=== PATIENT | male | born 1990 | race African-American/Black ===

== ENCOUNTER 2018-08-27 21:16 | Emergency (ER) | payer MEDICAID ==
[~2018-08-27] VITALS: Ht 182.9 cm; Wt 83.9 kg
--- NOTE | 2018-08-27 21:40 | NUR ---
ED Nurse Note: Pt walked in and c/o lower back pain after he fall today. Pt is AO x 4times, VSS, on room air no distress. GUERA seen Pt at bedside.
[2018-08-27] MEDS ORDERED: NKM (21:48)
[2018-08-27] MEDS ORDERED: Norco 5mg/325mg tab ORAL ONE (22:00)
--- NOTE | 2018-08-27 22:06 | NUR ---
ED Nurse Note: Pt went to CT scan.
[2018-08-27 22:07] VITALS: BP 132/78
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
[2018-08-27] MEDS ORDERED: HYDROCODON-ACE1 EA15 ORAL (22:35)
[2018-08-27] MEDS ORDERED: IBUPROFEN600 MG ORAL (22:35)
[2018-08-27 22:42] VITALS: BP 128/72
--- NOTE | 2018-08-27 22:42 | NUR ---
ED Nurse Note: Pt cleared DC by ERMAr. Pt is AO x 4times, VSS, on room air no distress. ID bend removed. Belongings given to Pt. DC and meds instructions given to Pt, Pt understood well. Pt walked out unit with steady gait.
[2018-08-27 22:43] VITALS: BP 128/72
--- NOTE | 2018-08-28 11:39 | Diagnostic Imaging Report ---
Indication: Back pain Comparison: None Findings: 3 views of the lumbar spine were obtained. No acute fracture or malalignment is identified. Vertebral body heights and disk spaces are well maintained. Posterior elements are unremarkable. Impression: No acute findings.
== END 2018-08-27 23:40 | disposition home or self-care (01) ==
LOC: EMR 21:59
DX: M54.5 Low back pain (principal)
CPT/HCPCS: 72020; 99283